=== PATIENT | female | born 1950 | race Caucasian/White ===

== ENCOUNTER → 2020-05-02 | Outpatient (CLI) | payer OTHER ==
[~2020-05-02] MED LIST: ALL DAY ALLERGY10 M2 PO; BACITRACIN15 GM TP; BEE POLLEN550 MG PO; COREG 3.125M3.125 MG PO; CYMBALTA20 MG PO; ELIQUIS2.5 MG PO; ESTROVEN MOOD400 MCG PO; FLEXERIL 10 MG10 MG PO; GLUCOPHAGE500 MG PO; HYDROCHLOROTHIA25 MG PO; IBUPROFEN800 MG PO; K-DUR TAB 10 M10 MEQ PO; LIPITOR40 MG PO; LISINOPRIL20 MG PO; MACRODANTIN100 MG PO; PERCOCET 10-321 EACH PO; PERCOCET 7.5-31 EACH PO; PRADAXA150 MG PO; TYLENOL 500 MG500 MG PO; ULTRAM50 MG PO; VALIUM 2 MG TAB2 MG PO; VITAMIN E400 UNI1 PO; VOLTAREN EC 2525 MG PO
[2020-05-02 12:30] LABS: HEMOGLOBIN 13.7 gm/dl (12.3-15.3); RED BLOOD COUNT 4.28 M/UL (4.00-5.10); WHITE BLOOD COUNT 4.4 K/UL (4.5-11.0)
[2020-05-02 12:34] LABS: BUN/CREATININE RATIO 26 (0-10)
== END ==
LOC: LAB 11:44
PROVIDERS: Orthopaedic Surgery
DX: Z01.812 Encounter for preprocedural laboratory examination (principal)
CPT/HCPCS: 36415; 80048; 85027; 86850; 86900; 86901

== ENCOUNTER 2020-05-03 06:36 | Day surgery (SDC) | payer OTHER ==
[~2020-05-03] VITALS: Ht 152.4 cm; Wt 87.1 kg
[~2020-05-03 06:36] MED LIST changes: -ALL DAY ALLERGY10 M2 PO; -COREG 3.125M3.125 MG PO; -CYMBALTA20 MG PO; -ELIQUIS2.5 MG PO; -HYDROCHLOROTHIA25 MG PO; -K-DUR TAB 10 M10 MEQ PO; -LIPITOR40 MG PO; -MACRODANTIN100 MG PO; -PERCOCET 7.5-31 EACH PO; -ULTRAM50 MG PO; -VOLTAREN EC 2525 MG PO
[2020-05-03] MEDS ORDERED: LIPITOR40 MG PO (07:14)
[2020-05-03] MEDS ORDERED: HYDROCHLOROTHIA25 MG PO (07:14)
[2020-05-03] MEDS ORDERED: K-DUR TAB 10 M10 MEQ PO (07:15)
[2020-05-03] MEDS ORDERED: CYMBALTA20 MG PO (07:15)
[2020-05-03] MEDS ORDERED: MACRODANTIN100 MG PO (07:16)
[2020-05-03] MEDS ORDERED: COREG 3.125M3.125 MG PO (07:16)
[2020-05-03] MEDS ORDERED: ULTRAM50 MG PO (07:17)
[2020-05-03] MEDS ORDERED: ALL DAY ALLERGY10 M2 PO (07:17)
[2020-05-03] MEDS ORDERED: VOLTAREN EC 2525 MG PO (07:18)
[2020-05-03] MEDS ORDERED: PERCOCET 7.5-31 EACH PO (12:42)
--- NOTE | 2020-05-04 03:31 | NUR ---
PT REFUSED TO USE ZERO KNEE DEVICE FOR THE ENTIRE SHIFT. PT STATES THAT SHE "WILL MAYBE USE IT IN THE MORNING." EDUCATION PROVIDED.
[2020-05-04 04:21] LABS: HEMOGLOBIN 12.2 gm/dl (12.3-15.3)
[2020-05-04 04:25] LABS: RED BLOOD COUNT 3.77 M/UL (4.00-5.10); WHITE BLOOD COUNT 6.6 K/UL (4.5-11.0)
[2020-05-04 04:37] LABS: BUN/CREATININE RATIO 28 (0-10)
--- NOTE | 2020-05-04 06:00 | NUR ---
POLAR ICE WAS USED CONTINUOUSLY FOR ENTIRE SHIFT, ONLY REMOVED TO GO TO [facility] PRN
[2020-05-04] MEDS ORDERED: ELIQUIS2.5 MG PO (15:07)
== END 2020-05-04 16:38 | disposition home or self-care (01) ==
LOC: OR 06:36 → M/S 15:30 → ZEROF 05-04 13:16 → M/S 05-04 13:16 → ZEROF 05-04 13:18 → OR 05-04 16:38
PROVIDERS: Orthopaedic Surgery
PROC: 0SRD0L9 Replacement of Left Knee Joint with Medial Unicondylar Synthetic Substitute, Cemented, Open Approach (ICD-10-PCS; principal; 2020-05-03 10:30)
DX: M17.12 Unilateral primary osteoarthritis, left knee (principal); E78.5 Hyperlipidemia, unspecified; F41.9 Anxiety disorder, unspecified; I95.9 Hypotension, unspecified; I10 Essential (primary) hypertension; E11.9 Type 2 diabetes mellitus without complications; K44.9 Diaphragmatic hernia without obstruction or gangrene; Z88.2 Allergy status to sulfonamides; Z88.5 Allergy status to narcotic agent; Z79.899 Other long term (current) drug therapy; Z20.822 Contact with and (suspected) exposure to COVID-19
CPT/HCPCS: 36415; 73560; 80048; 85027; 97110-GP-CQ; 97116-GP-CQ; 97162; 97166; 97535; C1713; C1776; J0690; J1885; J2001; J2250; J2270; J2704; J2795; J3010; J3370; J7120